=== PATIENT | female | born 1985 | race Caucasian/White ===

== ENCOUNTER 2016-09-28 10:04 | Emergency (ER) | payer OTHER ==
--- NOTE | ~2016-09-28 | CR63 ---
[facility] A Service of [facility] & [facility] RADIOLOGY TEXT RESULTS PATIENT: ALEXANDER BERUMEN LOCATION: SED : 85 UNIT #: [id number] AGE: [address]: Uzma Alvarado APRN SEX: F ORDER DR: [id number] [place] [id number] E MR#: [id number] #: [id number] NAME: ALEXANDER BERUMEN : 1985 SEX: F STUDY DATE/TIME: 09/28/2016 10:20 UNIT: SED ROOM: STUDY DESCRIPTION: CR Chest 2 View Attending Physician: Uzma Alvarado A.P.R.N. Ordering Physician: Uzma Suarez A.P.R.N. Primary Care Physician: No Primary Care Physician MEDICAL IMAGING REPORT This report is preliminary unless electronic signature is present. EXAM Chest x-ray 09/28 INDICATIONS Back pain and pain with breathing that started today. History of asthma. FINDINGS 2 views of the chest were obtained. No comparison. Cardiac and mediastinal contours are normal. There is a small hiatal hernia. Lung volumes are low, and there is some mild atelectasis in the bases. No pneumothorax. IMPRESSION Low-volume inspiration with mild bibasilar atelectasis. Small hiatal hernia. No pneumothorax. Dictated by... Ravi Castle Jr., M.D. THIS IS AN ELECTRONICALLY VERIFIED REPORT Ravi Castle Jr., M.D. at 09/28/2016 3:46 PM KENIA/bekah TD: 09/28/2016 15:15 JOB #: [id number] MEDICAL IMAGING REPORT Page 1 of 1
[~2016-09-28 10:04] MED LIST: IBUPROFEN800 MG PO; KEFLEX500 M2 PO; MACROBID100 M1 PO; NO MEDICATIONS; NORCO1 TAB 10/3 PO; PRENATAL1 TA1; PRILOSEC40 MG PO; RANITIDINE HCL150 M1 PO; VOLTAREN75 MG PO
== END 2016-09-28 11:13 | disposition home or self-care (01) ==
LOC: SED 10:04
DX: S29.012A Strain of muscle and tendon of back wall of thorax, initial encounter (principal); Z90.49 Acquired absence of other specified parts of digestive tract; J45.909 Unspecified asthma, uncomplicated; K21.9 Gastro-esophageal reflux disease without esophagitis; Z88.5 Allergy status to narcotic agent; X50.1XXA Overexertion from prolonged static or awkward postures, initial encounter
CPT/HCPCS: 71020; 99283